=== PATIENT | female | born 2000 | race African-American/Black ===

== ENCOUNTER 2025-01-02 05:27 | Inpatient (IN) | payer MEDICARE, SELFPAY ==
[2025-01-01 22:00] VITALS: BP 151/98
[2025-01-02] VITALS (9 sets, daily range): BP systolic 103–152; BP diastolic 49–106; BMI 44.8
[2025-01-02 00:36] LABS: ALT (SGPT) 11 U/L (0-35); AST (SGOT) 16 U/L (14-36); Albumin 4.5 g/dl (3.5-5.0); Alkaline Phosphatase 45 U/L (38-126); Blood Urea Nitrogen 8 mg/dl (7-17); Calcium 9.6 mg/dl (8.4-10.2); Carbon Dioxide 26 mmol/L (22-30); Chloride 101 mmol/L (98-107); Glucose 117 mg/dl (70-99); Potassium 3.7 mmol/L (3.5-5.1); Sodium 131 mmol/L (135-145); Total Protein 7.2 g/dl (6.3-8.2); eGFR > 60.00
[2025-01-02 00:43] LABS: Hematocrit 38.0 % (37.0-47.0); Hemoglobin 12.9 g/dL (12.0-16.0); Mean Corp Hgb Conc. 33.9 g/dL (33.0-37.0); Mean Corpuscular Volume 80.3 fL (81.0-99.0); Nucleated Red Blood Cells % 0 %; Platelet Count 289 10^3/uL (130-400); Red Cell Dist. Width 13.9 % (11.5-14.5)
--- NOTE | 2025-01-02 01:18 | ED.GENMED ---
History of Present Illness
General
Chief Complaint: Problems
Source: patient and spouse
Exam Limitations: none
Time Seen by Provider: 01/01/25 23:26
Nursing documentation reviewed up to this point in time: agreed with
History of Present Illness
History of Present Illness:
Note:
CHIEF COMPLAINT(S)
Cramping abdominal pain and spotting during .
HISTORY OF PRESENT ILLNESS
The patient is a 24-year-old female, currently experiencing her first . She presented with concerns of short-lived cramping pain and spotting, which began earlier today while she was at work. The patient reports the presence of blood but
notes no significant pain. She indicates that although there is spotting, this is her first encounter with such symptoms during . The patient has contacted her fuse assembler, who advised that as long as severe pain is not present, she should
be monitored.
PLAN
- Obtain blood samples to assess serum quantitative human chorionic gonadotropin (HCG) levels. The level will provide an indication of the pregnancys status, though it does not definitively indicate the gestational age.
- Perform an ultrasound to evaluate the status of the .
- If all results are reassuring, plan for follow-up with the patients fuse assembler as recommended.
- The patient was informed about the term 'threatened miscarriage,' assuring her that many patients continue to have normal pregnancies even after such occurrences.
- Instructed the patient to maintain a full bladder for the ultrasound procedure and to drink water if needed for this purpose.
- Plan to discuss the findings and next steps once diagnostic results are available.
DIFFERENTIAL DIAGNOSIS
The Differential Diagnosis includes, in no particular order and is not limited to:
1. Threatened miscarriage
2. Normal early bleeding
3. Ectopic -seen on ultrasound
4. Implantation bleeding
5. Subchorionic hemorrhage
6. Cervical polyp
7. Cervicitis or vaginal infection
8. Hemorrhoids or rectal lesions causing confusion with vaginal spotting
9. Gestational trophoblastic disease
10. Miscarriage (including early miscarriage and missed miscarriage)
Disposition:
SUMMARY OF ENCOUNTER
The patient is a 24-year-old female experiencing her first , who presented with cramping abdominal pain and spotting. After an initial assessment and considering potential reasons for these symptoms, she was evaluated and prepared for
further management and observation under the obstetrics-gynecology service of Dr. Colmenares.
DISPOSITION
Admit
ASSESSMENT
The differential diagnosis includes threatened miscarriage, normal early bleeding, ectopic , implantation bleeding, subchorionic hemorrhage, cervical polyp, cervicitis or vaginal infection, hemorrhoids or rectal lesions causing
confusion with vaginal spotting, gestational trophoblastic disease, and miscarriage.
PLAN
The plan included obtaining blood samples to assess serum quantitative human chorionic gonadotropin (HCG) levels and performing an ultrasound to evaluate the status of the . If results are reassuring, the patient will have a follow-up with
her fuse assembler.
PATIENT EDUCATION AND COUNSELING
The patient was informed about the term 'threatened miscarriage' and assured that many continue to have normal pregnancies after such occurrences. She was instructed to maintain a full bladder for the ultrasound and drink water if needed.
MEDICAL DECISION MAKING
-Complexity of Data Reviewed: The differential diagnosis includes threatened miscarriage, normal early bleeding, ectopic , implantation bleeding, subchorionic hemorrhage, cervical polyp, cervicitis or vaginal infection,
hemorrhoids or rectal lesions causing confusion with vaginal spotting, gestational trophoblastic disease, and miscarriage.
DIAGNOSIS
- Threatened miscarriage (O20.0)
- Normal early bleeding (N93.9)
- Ectopic (O00.9)
- Implantation bleeding (O29.3)
Review of Systems
Review of Systems
Allergies reviewed?: Yes
All Other Systems: ROS reviewed and negative except as documented in HPI and ROS
ABD/GI: Reports abdominal pain
Phy Exam
Physical Exam
Physical Exam:
.
Course
Orders/Labs/Results
Orders:
Orders
01/01/25 23:43
HCG, Beta Quantitative [Beta HCG Quantitative] Urgent
Is this a screen?: No
01/01/25 23:44
Type+Screen Urgent
Complete Blood Count/With Diff Urgent
Comprehensive Metabolic Panel Urgent
01/02/25 00:00
US W Transvaginal Urgent
Reason For Exam: bleeding
Abnormal Lab Results
01/02/25
00:06
MCV 80.3 L fL
(81.0-99.0)
Sodium 131 L mmol/L
(135-145)
Creatinine 0.5 L mg/dL
(0.6-1.0)
Glucose 117 H mg/dl
(70-99)
01/02/25 00:06
01/02/25 00:06
Vital Signs
Initial and Last Documented VS:
Initial Vital Signs
Temp Pulse Resp BP Pulse Ox
98.1 F 95 18 151/98 98
01/01/25 22:00 01/01/25 22:00 01/01/25 22:00 01/01/25 22:00 01/01/25 22:00
Last Documented Vital Signs
Temp Pulse Resp BP Pulse Ox
98.1 F 103 18 152/106 99
01/02/25 01:42 01/02/25 01:42 01/02/25 01:42 01/02/25 01:42 01/02/25 01:42
Information
Weeks gestation: N/A
Location: Location: (Ectopic)
*Radiology
Radiology exam reviewed: radiology read reviewed
*Pulse Oximetry
SaO2: 98
Oxygen Mode of Delivery: Room air
Patient hypoxic: no
*Critical Care Note
Total Time (30-74mins, 75-104mins- exclusive of procedures): Not Applicable
Update Note
Update Note:
NAME: AVERY CALLE
DATE OF EXAM: 01/02/2025
Patient No: [id number]
Physician: YUAN^Chip
Date of : 2000
Past Medical History (entered by Technologist):
Reason For Exam (entered by Technologist):
Other Notes (entered by Technologist):
Additional Information (per [facility]): positive preg test, vaginal bleeding
ULTRASOUND PELVIS
IMPRESSION:
Findings compatible with a living ectopic .
In the left adnexa there is a 2.4 cm mass containing a living ectopic with a heart rate of 121 bpm. Recommend [employer]ATE [employer] consultation.
Trace free fluid.
4.5 cm hemorrhagic cyst arising from the right ovary. Doppler flow within the right ovary.
Case discussed with clinician listed above at time detailed below.
Case finalized on 01/02/25 01:16 EST
Umang Wagner M.D.
This report has been electronically signed and verified by the Radiologist whose name is printed above.
ED Attending Note
-
Portions of this chart may have been created with voice recognition software.� Occasional wrong word or��sound alike� substitutions may have occurred due to the inherent limitations of voice recognition software.
Discharge Plan
Departure
Patient Disposition: OR
Date of Disposition: 01/02/25
Time of Disposition: 01:46
Admit to: OR
Presentation/result/management discussed w/ accepting MD/DO: Ruben Colmenares
Condition: Serious
Discharge Problem:
Ectopic
Referrals:
Pushpa Lorenz PA-C [Family Provider, Family Practice]
Interventions
Interventions:
*Risk Screen - Suicide Last Done: 01/01/25 22:02
*General Assessment Last Done: 01/01/25 22:02
*Neglect/Abuse Screening Last Done: 01/01/25 22:59
*ED- Fall Risk Assessment Last Done: 01/01/25 22:59
*ED COVID-19 Vaccine History Last Done: 01/01/25 22:02
*ED Influenza Vaccine History Last Done: 01/01/25 22:02
ED-Female Genitourinary Assessment Last Done: 01/01/25 22:59
Discharge Date and Time
Print Language: [place]
--- NOTE | 2025-01-02 01:54 | HPS.HSE ---
Addendum entered and electronically signed by Ruben Colmenares MD 02/06/25 16:53:
Admit meds: none
Original Note:
Family Physician
-
Family Physician: Pushpa Lorenz PA-C
Chief Complaint
-
with pain and bleeding
History of Present Illness
24 y/o g1 with LMP end 11/2024 presents with light vaginal bleeding and lower abdominal/rectal pain. Patient with slight bleeding over last several days. belcher began late today and has gotten worse. In ED, HCG 9594.40, ultrasound demonstrates an
ectopic in LEFT adnexa with FHT 120, nothing in uterus.
Medical History
Past Medical History
Past Medical History: Reports Asthma
Additional Past Medical History:
Hypoglycemia, Class 3 obesity
Past Surgical History: Reports None
Social History
Tobacco: Non-smoker
Alcohol: Occasional
Drug: None
Family History
Family History: Not pertinent
Allergies / Home Medications
Allergies reflects when Allergies were last updated in [employer].
Home Medications with original date entered in [employer]
Allergy/Medication List:
Penicillin, nuts, fish
Review of Systems
-
A 12 point ROS was completed and negative except as noted: Yes
Physical Exam
Vital Signs
Vital Signs
Temp Pulse Resp BP Pulse Ox
98.1 F 103 18 152/106 99
01/02/25 01:42 01/02/25 01:42 01/02/25 01:42 01/02/25 01:42 01/02/25 01:42
Physical Exam
General: Well Developed, Well Nourished and No Apparent Distress
HEENT: NormoCephalic
Respiratory: Clear
Cardiac: Regular Rhythm
Breast: Deferred by me
GI: Soft, Non Tender, Non Distended and Normal Bowel Sounds
Rectal: Deferred by Provider
Genito-urinary: Deferred by me
Musculoskeletal: Other (No calf pain)
Skin: Warm
Neuro: AO x 3
Psych: Calm
Laboratory Results
-
01/02/25 00:06
01/02/25 00:06
Laboratory Results
Total Bilirubin 0.3 mg/dl (0.2-1.3) 01/02/25 00:06
AST 16 U/L (14-36) 01/02/25 00:06
ALT 11 U/L (0-35) 01/02/25 00:06
Alkaline Phosphatase 45 U/L (38-126) 01/02/25 00:06
Data Reviewed
-
Diagnostic Radiology: Discussed with Physician and Discussed with Patient
Ultrasound: Report Reviewed by me and Discussed with Physician
Lab Data: Labs Reviewed by me and Discussed with Physician
Impression/Plan
-
IMPRESSION:LEFT ectopic
PLAN: Admit, proceed with diagnostic laparoscopy, possible left salpingostomy, possible left salpingectomy, possible left oophorectomy. Consent signed after review of possible risks and complications including possible complications of bleeding,
infection, fertility impact. Procedure reviewed, questions answered
== END 2025-01-02 06:34 | disposition home or self-care (01) | DRG 819 ==
LOC: PACUI 05:27
PROVIDERS: Obstetrics & Gynecology; ADMITTING PHYSICIAN Obstetrics & Gynecology; EMERGENCY PHYSICIAN Student in an Organized Health Care Education/Training Program; FAMILY PHYSICIAN Physician Assistant
PROC: 10T24ZZ Resection of Products of Conception, Ectopic, Percutaneous Endoscopic Approach (ICD-10-PCS; 2025-01-02)
PROC: 0UT64ZZ Resection of Left Fallopian Tube, Percutaneous Endoscopic Approach (ICD-10-PCS; 2025-01-02)
DX: O00.102 Left tubal pregnancy without intrauterine pregnancy (principal); O34.11 Maternal care for benign tumor of corpus uteri, first trimester; Z3A.08 8 weeks gestation of pregnancy
CPT/HCPCS: 76801; 76817; 80053; 84702; 85025; 86850; 86900; 86901; 88305; 96374; 96375; 99285